=== PATIENT | male | born 1970 | race Caucasian/White ===

== ENCOUNTER 2019-10-18 14:47 | Outpatient (CLI) | payer SELFPAY ==
--- NOTE | 2019-10-18 14:58 | XR_ITS ---
WS: [id number] PROCEDURE: XR chest 2V* [id number] CLINICAL INFORMATION: CHRONIC COUGH, TOBACCO COMPARISON: None. FINDINGS: Heart: Normal cardiac silhouette. Lungs: Moderate chronic emphysematous changes. No acute pulmonary infiltrates. Bones: Normal visualized bony structures. XR/XR chest 2V* [id number] IMPRESSION: Moderate chronic emphysematous changes. No acute chest findings.
== END 2019-10-18 14:48 | disposition home or self-care (01) ==
LOC: RADWPI 14:54
PROVIDERS: PCP Nurse Practitioner Family; Visit Provider Nurse Practitioner Family
DX: R05 Cough (principal); F17.200 Nicotine dependence, unspecified, uncomplicated; J43.9 Emphysema, unspecified
CPT/HCPCS: 71046

== ENCOUNTER 2022-12-14 15:05 | Outpatient (CLI) | payer BC, MEDICAID, SELFPAY ==
--- NOTE | 2022-12-14 15:53 | XR_ITS ---
WS: [id number] CHEST 2 VIEWS HISTORY: Dyspnea COMPARISON: 10/18/2019. Lungs: Hyperinflated lungs with flattened diaphragms. Mild prominence of the interstitium has progres sed since the prior study. No dense consolidation or pneumonia. Cardiac size: Normal. Mediastinum/Aorta: Normal mediastinum. Bones: Normal. IMPRESSION: 1. Chronic emphysema. 2. Mild increase in amount of interstitial thickening greatest throughout the lower right lung. Proba chastity areas of pneumonitis. No dense consolidation or pneumonia.
== END 2022-12-14 15:06 | disposition home or self-care (01) ==
PROVIDERS: PCP Nurse Practitioner Family; Visit Provider Nurse Practitioner Family
DX: J44.9 Chronic obstructive pulmonary disease, unspecified (principal); R06.00 Dyspnea, unspecified
CPT/HCPCS: 71046

== ENCOUNTER 2023-01-04 09:43 | Emergency (ER) | payer BC, MEDICAID, SELFPAY ==
[2023-01-04 10:06] VITALS: BP 145/74; PULSE 83; RESP 18; TEMP 36.8; O2SAT 93; BMI 30.9
--- NOTE | 2023-01-04 12:33 | ED_ITS ---
HPI - Abdominal Pain General: Chief Complaint: Abdominal Pain Stated Complaint: abd pain, left side Time Seen by Provider: 01/04/23 12:27 Source: patient Mode of arrival: ambulatory History of Present Illness: 52-year-old male presents emergency room complaint complaining of right-sided abdominal plain part of mid abdomen laterally following pain fluid he coughs or moves or twists. Particularly painful when he coughs. Patient is a heavy smoker has severe COPD he has been wheezing quite a bit lately and coughing no dysuria urgency or frequency no hematochezia melena he had emesis no diarrhea or vomiting MD elicited complaint: abdominal pain Onset (ago): day(s) Pain Consistency: intermittent Location: Other (Left lateral mid abdomen ) Quality: sharp Radiation: none Exacerbating factors: movement and other (Coughing) Relieving factors: rest (Remaining still) Associated Symptoms: Denies anorexia, belching, bloating, change in bowel habits, change in stool character, chills, coffee ground emesis, constipation, GI cramping, diarrhea, dyspepsia, dysuria, excessive flatus, fever(s), heartburn, hematochezia, hematuria, hematemesis, fecal incontinence, loose stools, melena, nausea, poor appetite, syncope and vomiting Review of Systems Const: Denies: fever(s) or chills Card: Denies: syncope Resp: Reports: dyspnea, non-productive cough and wheezing; Denies: productive cough GI: Reports: abdominal pain; Denies: nausea, vomiting, hematemesis, coffee ground emesis, heartburn, diarrhea, constipation, bloating, GI cramping, belching, excessive flatus, fecal incontinence, change in bowel habits, change in stool character, hematochezia or melena : Denies: dysuria, urinary frequency, urinary urgency or hematuria Skin/Breast: Denies: rash or pruritus PFSH ED PFSH: Medical History (Updated 01/04/23 @ 14:44 by Hans Demarco DO) COPD (chronic obstructive pulmonary disease) Physical Exam Const: GENERAL APPEARANCE: cooperative and comfortable ORIENTATION/CONSCIOUSNESS: Yes awake, Yes oriented to person, Yes oriented to place and Yes oriented to time HENMT: COMMON NORMALS: normocephalic, atraumatic and hearing grossly normal bilaterally HEAD & SCALP: normocephalic and atraumatic Resp: AUSCULTATION: rhonchi and wheezes Cardio: COMMON NORMALS: regular rate, regular rhythm and No murmurs present (Cardio) RATE: regular rate RHYTHM: regular rhythm GI: COMMON NORMALS: No hepatosplenomegaly present AUSCULTATION: Yes normoactive bowel sounds PALPATION: Yes Tenderness to palpation present (GI) (Left lateral mid abdomen), No Guarding due to palpation present (GI) and Yes No hepatosplenomegaly present OTHER: No palpable abdominal wall defects or hernias no inguinal hernia. Mild tenderness with palpation mid lateral abdomen on the left GI image (male): 1. : COMMON NORMALS: Yes no CVA tenderness BLADDER/KIDNEY EXAM: Yes no CVA tenderness Back/Pelvis: COMMON NORMALS: no CVA tenderness Extremity: COMMON NORMALS: normal to inspection, capillary refill normal, no clubbing, cyanosis or edema, no calf tenderness and no pedal edema Neuro: SENSORIUM/ORIENTATION: Yes oriented to person, Yes oriented to place and Yes oriented to time Skin: COMMON NORMALS: no rashes or lesions noted GENERAL SKIN EXAM: no rashes or lesions noted Course Vital Signs: Vital signs: Vital Signs Temperature 98.2 F 01/04/23 10:06 Pulse Rate 69 01/04/23 14:06 Respiratory Rate 18 01/04/23 14:06 Blood Pressure 146/94 01/04/23 14:06 Pulse Oximetry 92 01/04/23 14:06 Oxygen Delivery Me thod Room Air 01/04/23 14:06 MDM - Abdominal Pain Medical Decision Making Improved after nebulizer. Discharge home on steroids doxycycline Symbicort and albuterol to use as needed suspect this is from muscle pull from his COPD exacerbation. Can use ibuprofen or Tylenol for discomfort and junaid wall ice follow-up with primary care doctor within 1 week. Medical Records I reviewed the patient's medical records. Lab Data I reviewed the patient's lab results. 01/04/23 13:36 01/04/23 13:36 Labs/Radiology: Radiology Impressions Chest X-Ray 01/04/23 12:44 IMPRESSION: No acute findings. Laboratory Results WBC 10.91 10^3/uL (3.29-11.43) 01/04/23 13:36 RBC 4.51 10^6/uL (3.85-5.65) 01/04/23 13:36 Hgb 13.40 g/dL (11.27-16.99) 01/04/23 13:36 Hct 42.2 % (37-53) 01/04/23 13:36 MCV 93.6 fl (82-101) 01/04/23 13:36 MCH 29.7 pg (27-33) 01/04/23 13:36 MCHC 31.8 g/dL (30-55) 01/04/23 13:36 RDW 14.0 % (12.1-15.1) 01/04/23 13:36 Plt Count 265 10^3/cmm (157-399) 01/04/23 13:36 MPV 9.7 fL (7.4-10.4) 01/04/23 13:36 Neut % (Auto) 70.4 % 01/04/23 13:36 Lymph % (Auto) 18.7 % 01/04/23 13:36 Wilkes % (Auto) 8.1 % 01/04/23 13:36 Eos % (Auto) 2.0 % 01/04/23 13:36 Baso % (Auto) 0.4 % 01/04/23 13:36 Neut # (Auto) 7.69 10^3/uL (1.8-7.7) 01/04/23 13:36 Lymph # (Auto) 2.0 10^3/uL (0.8-4.8) 01/04/23 13:36 Wilkes # (Auto) 0.9 10^3/uL (0.2-0.9) 01/04/23 13:36 Eos # (Auto) 0.2 10^3/uL (0.0-0.8) 01/04/23 13:36 Baso # (Auto) 0.0 10^3/uL (0.0-0.1) 01/04/23 13:36 Nucleated RBC % (auto) 0 % 01/04/23 13:36 Nucleated RBCs # 0.0 /100WBC 01/04/23 13:36 Sodium 137 mmol/L (136-145) 01/04/23 13:36 Potassium 3.9 mmol/L (3.5-5.1) 01/04/23 13:36 Chloride 97 mmol/L (98-107) L 01/04/23 13:36 Carbon Dioxide 33 mmol/L (22-29) H 01/04/23 13:36 Anion Gap 10.9 (5-19) 01/04/23 13:36 BUN 16 mg/dL (6-20) 01/04/23 13:36 Creatinine 0.7 mg/dL (0.7-1.2) 01/04/23 13:36 GFR Calculation 118.4 mL/min (90-130) 01/04/23 13:36 Glucose 108 mg/dL (65-115) 01/04/23 13:36 Calculated Osmolality 286 mOsm/kg (285-295) 01/04/23 13:36 Calcium 9.6 mg/dL (8.5-10.5) 01/04/23 13:36 Total Bilirubin 0.2 mg/dL (0.15-1.2) 01/04/23 13:36 AST 19 U/L (0-40) 01/04/23 13:36 ALT 30 U/L (0-41) 01/04/23 13:36 Alkaline Phosphatase 91 U/L (40-130) 01/04/23 13:36 Total Protein 7.5 g/dL (6.6-8.7) 01/04/23 13:36 Albumin 4.4 g/dL (3.5-5.2) 01/04/23 13:36 Globulin 3.1 g/dL (1.3-4.6) 01/04/23 13:36 Urine Color Yellow (Yellow) 01/04/23 13:43 Urine Appearance Clear (CLEAR) 01/04/23 13:43 Urine pH 6 (5-7) 01/04/23 13:43 Ur Specific [place] 1.020 (1.005-1.030) 01/04/23 13:43 Urine Protein Neg (Negative) 01/04/23 13:43 Urine Glucose (UA) Norm (Normal) 01/04/23 13:43 Urine Ketones 1+ (Negative) H 01/04/23 13:43 Urine Blood Neg (Negative) 01/04/23 13:43 Urine Nitrate Negative (Negative) 01/04/23 13:43 Urine Bilirubin Neg (Negative) 01/04/23 13:43 Urine Urobilinogen Norm mg/dL (Negative) 01/04/23 13:43 Ur Leukocyte Esterase Negative (Negative) 01/04/23 13:43 Discharge Plan Discharge Patient Disposition: Home Clinical Impression: Strain of abdominal wall, Acute exacerbation of chronic obstructive pulmonary disease Condition: Stable Prescriptions: New doxycycline hyclate 100 mg capsule 100 mg PO BID 10 Days Qty: 20 0RF prednisone 20 mg tablet 20 mg PO TID Qty: 15 0RF Rx Instructions: 1 p.o. 3 times daily x3 days, 1 p.o. twice daily x2 days, 1 p.o. daily x2 days albuterol sulfate 90 mcg/actuation HFA aerosol inhaler 2 inh INHALATION Q4H PRN (Reason: shortness of breath or wheezing) Qty: 18 0RF Symbicort 80-4.5 mcg/actuation HFA aerosol inhaler 2 inh inhalation BID Qty: 10.2 0RF Discharge Orders: Discharge ED (Routine); Ordered 01/04/23 Ordered By: Hans Demarco Referrals: Nicki Farah, PACKING SUPERVISOR [Primary Care Provider] - Discharge Diet: Usual diet Discharge Activity: Increase activity as tolerated Patient Instructions: Opioid Safety, Pain Management Activity Restrictions/Additional Instructions: Follow-up with your primary care doctor within the week to reevaluate your new medicines. Coding Level of Care Code ED Cnc Machine Setter for Korina Mcneal
--- NOTE | 2023-01-04 12:44 | XRR_ITS ---
PROCEDURE INFORMATION: Exam: XR Chest Exam date and time: 01/04/2023 12:45 PM Age: 52 years old Clinical indication: Chest wall pain; Additional info: Dyspnea/cough TECHNIQUE: Imaging protocol: Radiologic exam of the chest. Views: 1 view. COMPARISON: CR XR chest 2V* [id number] 12/14/2022 3:57 PM FINDINGS: Lungs: Minimal linear atelectasis versus scarring at the peripheral right lung base. No consolidation. Pleural spaces: Unremarkable. No pleural effusion. No pneumothorax. Heart/Mediastinum: Unremarkable. No cardiomegaly. Bones/joints: Mild degenerative changes of the shoulders. XR/XR chest 1V portable [id number] IMPRESSION: No acute findings.
[2023-01-04] MEDS: ipratropium-albuterol 3 mL Neb INHALATION (13:16)
[2023-01-04 13:18] VITALS: PULSE 71; RESP 22; O2SAT 91
[2023-01-04 13:22] VITALS: PULSE 67
[2023-01-04 13:26] VITALS: BP 146/94; PULSE 76; RESP 18; O2SAT 93
[2023-01-04] MEDS: dexamethasone 10 mg/mL INJ IVP (13:35)
[2023-01-04 13:47] LABS: Basophils % 0.4 %; Eosinophils # 0.2 10^3/uL (0.0-0.8); Hematocrit 42.2 % (37-53); Lymphocytes % 18.7 %; Mean Corpuscular HGB Conc 31.8 g/dL (30-55); Mean Corpuscular Hemoglobin 29.7 pg (27-33); Mean Corpuscular Volume 93.6 fl (82-101); Mean Platelet Volume 9.7 fL (7.4-10.4); Monocytes # 0.9 10^3/uL (0.2-0.9); Monocytes % 8.1 %; Neutrophils # 7.69 10^3/uL (1.8-7.7); Neutrophils % 70.4 %; Nucleated Red Blood Cells % 0 %; Platelet Count 265 10^3/cmm (157-399); Red Blood Count 4.51 10^6/uL (3.85-5.65); White Blood Count 10.91 10^3/uL (3.29-11.43)
[2023-01-04 14:06] VITALS: BP 146/94; PULSE 69; RESP 18; O2SAT 92
[2023-01-04 14:11] LABS: Add Urine Microscopic? NO; Charge for UA Resulting for Rev
[2023-01-04 14:11] LABS: Alanine Aminotransferase 30 U/L (0-41); Albumin Level 4.4 g/dL (3.5-5.2); Alkaline Phosphatase 91 U/L (40-130); Anion Gap 10.9 (5-19); Aspartate Amino Transferase 19 U/L (0-40); Blood Urea Nitrogen 16 mg/dL (6-20); Calcium 9.6 mg/dL (8.5-10.5); Carbon Dioxide 33 mmol/L (22-29); Chloride 97 mmol/L (98-107); Globulin 3.1 g/dL (1.3-4.6); Glomerular Filtration Rate 118.4 mL/min (90-130); Glucose 108 mg/dL (65-115); Osmolality Calculated 286 mOsm/kg (285-295); Potassium 3.9 mmol/L (3.5-5.1); Sodium 137 mmol/L (136-145); Total Bilirubin 0.2 mg/dL (0.15-1.2); Total Protein 7.5 g/dL (6.6-8.7)
[2023-01-04 14:28] LABS: Bilirubin Urine Neg (Negative); Blood Urine Neg (Negative); Glucose Urine UA Norm (Normal); Ketones Urine 1+ (Negative); Leukocyte Esterase Urine Negative (Negative); Nitrate Urine Negative (Negative); Protein Urine Neg (Negative); Urine Appearance Clear (CLEAR); Urine Color Yellow (Yellow); Urobilinogen Urine Norm (Negative); pH Urine 6 (5-7)
== END 2023-01-04 14:50 | disposition home or self-care (01) ==
PROVIDERS: Emergency Provider Family Medicine; PCP Nurse Practitioner Family
DX: S39.011A Strain of muscle, fascia and tendon of abdomen, initial encounter (principal); J44.1 Chronic obstructive pulmonary disease with (acute) exacerbation; X58.XXXA Exposure to other specified factors, initial encounter
CPT/HCPCS: 71045; 80053; 81003; 85025; 94640; 96374; 99284; J1100

== ENCOUNTER 2023-06-16 16:50 | Outpatient (CLI) | payer BC, MEDICAID, SELFPAY ==
--- NOTE | 2023-06-16 16:55 | XR_ITS ---
WS: [id number] KUB, AP view, 06/16/2023 Clinical Data: CONSTIPATION Comparison: None. Findings: No abnormal intraabdominal masses or calcifications are seen. There is no dilatated small bowel or ev idence of obstruction. There is fecal material throughout the colon. There is degenerative change of the lumbar vertebral benito dies with a minimal levoscoliosis.. Impression: Moderate fecal material in the colon.
--- NOTE | 2023-06-16 16:55 | XR_ITS ---
WS: [id number] Chest 2 views, 06/16/2023 Clinical Data: DYSPNEA Comparison: Portable chest, 01/04/2023 Findings: No nodules, masses or effusions are seen. The heart is slightly enlarged. The pulmonary vas cularity is not increased. No pneumonia or pneumothorax is seen. The diaphragms are flattened. The ao rtic arch is minimally tortuous. Impression: 1. Cardiomegaly and atherosclerosis. 2. Hyperinflation.
== END 2023-06-16 16:51 | disposition home or self-care (01) ==
PROVIDERS: PCP Nurse Practitioner Family; Visit Provider Nurse Practitioner Family
DX: R06.00 Dyspnea, unspecified (principal); K59.00 Constipation, unspecified; I51.7 Cardiomegaly; R91.8 Other nonspecific abnormal finding of lung field; I70.90 Unspecified atherosclerosis
CPT/HCPCS: 71046; 74018

== ENCOUNTER 2023-07-21 12:47 | Outpatient (CLI) | payer BC, MEDICAID, SELFPAY ==
[2023-07-21 13:07] VITALS: PULSE 87; RESP 18; O2SAT 94
[2023-07-21] MEDS: albuterol 2.5 mg/3 mL Neb INHALATION (13:07)
[2023-07-21 13:11] VITALS: PULSE 92
== END 2023-07-21 12:48 | disposition home or self-care (01) ==
PROVIDERS: PCP Nurse Practitioner Family; Visit Provider Nurse Practitioner Family
DX: R06.00 Dyspnea, unspecified (principal)
CPT/HCPCS: 94060; J7613

== ENCOUNTER 2023-11-19 15:06 | Outpatient (CLI) | payer BC, MEDICAID, SELFPAY ==
--- NOTE | 2023-11-19 15:18 | CTR_ITS ---
PROCEDURE INFORMATION: Exam: CT Neck With Contrast Exam date and time: 11/19/2023 3:24 PM Age: 52 years old Clinical indication: Dyspnea / difficulty breathing; Additional info: Dysphagia TECHNIQUE: Imaging protocol: Computed tomography of the neck with contrast. Radiation optimization: All CT scans at this facility use at least one of these dose optimization techniques: automated exposure control; mA and/or kV adjustment per patient size (includes targeted exams where dose is matched to clinical indication); or iterative reconstruction. Contrast material: OMNI 350; Contrast volume: 100 ml; Contrast route: INTRAVENOUS (IV); COMPARISON: CR XR chest 2V* [id number] 06/16/2023 4:58 PM RADIATION DOSE METRICS: Total DLP (mGy-cm): 267.13 FINDINGS: Salivary glands: Normal. Glands are normal in size. Pharynx: Unremarkable. No significant tonsillar enlargement. Prevertebral and retropharyngeal spaces: Unremarkable. Larynx: Unremarkable. Epiglottis is normal. Thyroid: Normal. No enlarged or calcified nodules. Trachea: Visualized trachea is unremarkable. Lungs: Motion artifact makes evaluation of the lung apices somewhat suboptimal there appears to be emphysematous changes. Lymph nodes: Unremarkable. No lymphadenopathy. Vasculature: There is minimally heterogeneous increased density in between the anterior aspect of the right internal carotid artery and posterior aspect of the right external carotid artery measuring 2.1 x 1.7 cm in transverse/AP dimensions suspicious for an aneurysm. Atherosclerotic plaque in the proximal left internal carotid artery results in mild to moderate stenosis. Bones/joints: Unremarkable. No acute fracture. Soft tissues: Unremarkable. No significant soft tissue swelling. CT/CT neck w con* [id number] IMPRESSION: 1. Heterogeneous increased density in between the right internal and external carotid arteries this is suspicious for aneurysm. CT angiogram of the neck is recommended for further evaluation. 2. There is atherosclerotic plaque in the proximal left internal carotid artery with uieo-mg-psllniyl stenosis. 3. Motion artifact makes evaluation of the lung apices somewhat suboptimal there appears to be emphysematous changes.
[2023-11-19] MEDS: iohexol 350 mg/mL 500 mL Btl (per mL) IV (15:39)
== END 2023-11-19 15:07 | disposition home or self-care (01) ==
PROVIDERS: PCP Nurse Practitioner Family; Visit Provider Specialist
DX: R13.19 Other dysphagia (principal); I77.89 Other specified disorders of arteries and arterioles; R06.00 Dyspnea, unspecified; R93.89 Abnormal findings on diagnostic imaging of other specified body structures; I65.22 Occlusion and stenosis of left carotid artery
CPT/HCPCS: 70491; Q9967

== ENCOUNTER 2023-11-24 08:17 | Outpatient (CLI) | payer BC, MEDICAID, SELFPAY ==
--- NOTE | 2023-11-24 08:26 | FL_ITS ---
WS: [id number] FL barium swallow [id number] REASON FOR EXAM: OTHER DYSPHAGIA. Long history of gastroesophageal reflux symptoms. FLUOROSCOPY TIME: 3min [id number] # OF SPOT FILMS: Multiple FINDINGS: Patient was examined in the standing AP and lateral position, prone [place] position, and the supine posi tion. Swallowing of barium was monitored fluoroscopically and multiple spot films obtained. The cervical esophagus is unremarkable. The thoracic esophagus has mildly weakened peristalsis and mild dilatation. There is a moderate hiatal hernia. There are extremely thickened, presumed edematous gastric folds fr om the fundus extending into the hiatal hernia. There is a persistent focal masslike area at the saurabh roesophageal junction. Gastroesophageal reflux was not identified however Short patient interview strongly indicates gastroe sophageal reflux. FL/FL barium swallow [id number] IMPRESSION: Mildly decreased peristalsis of the thoracic esophagus with mild dilatation. Ed ematous gastric mucosa and a persistent masslike focus at the gastroesophageal junction which measures approximately 2 x 2 cm. With this finding and the patie nt's history, upper endoscopy to exclude carcinoma is suggested.
== END 2023-11-24 08:18 | disposition home or self-care (01) ==
LOC: RAD 08:18
PROVIDERS: PCP Nurse Practitioner Family; Visit Provider Specialist
DX: R13.19 Other dysphagia (principal); K44.9 Diaphragmatic hernia without obstruction or gangrene; K22.89 Other specified disease of esophagus
CPT/HCPCS: 74220

== ENCOUNTER 2023-12-08 12:20 | Outpatient (CLI) | payer BC, MEDICAID, SELFPAY ==
--- NOTE | 2023-12-08 12:29 | CT_ITS ---
WS: [id number] CT ANGIOGRAM CAROTID ARTERIES HISTORY: ANEURYSM OF CAROTID ARTERY TECHNIQUE: CT angiogram is performed of the carotid arteries. During arterial injection imaging is ob tained from the skull base to the aortic arch in 1.25 mm imaging. Coronal and sagittal reformats are submitted, MIP imaging also reviewed. Additional multiplanar reformats of the carotid arteries are esquivel bmitted. NASCET criteria utilized. All CT scans at [facility] use at least one of these dose optimization techniques: automated exposure control; mA and/or kV adjustment per patient size (includ es targeted exams where dose is matched to clinical indication); or iterative reconstruction. CONTRAST: Omnipaque 350; 100 mL IV. DLP: 283.52 mGy.cm COMPARISON: CT neck 11/19/2023 Right carotid: Common carotid artery: Arises normally from the innominate artery. No significant plaque or stenosis. Internal carotid artery: Splaying of the RIGHT internal and external carotid arteries. There is vascu lar enhancement splaying the internal and external carotid arteries measures 1.4 x 1.9 x 1.9 cm. 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 Proximal RIGHT ICA is approximately 50% encase d by the carotid body tumor. External carotid artery: Patent. Left carotid: Common carotid artery: Arises normally from the aortic arch. No significant stenosis. Internal carotid artery: Mild plaque at the bifurcation. There is a very tiny area of increased enhan cement between the internal and external carotid arteries which could possibly be a very tiny paragan glioma. External carotid artery: Patent. Right vertebral artery: Small caliber but patent. Left vertebral artery: Dominant and normal. Subclavian arteries: No stenosis or abnormality identified. Upper thorax: Mild emphysema. Thyroid gland: Normal. Osseous structures: Unremarkable. Skull base: Negative. CT/CT angio neck [id number] IMPRESSION: 1. Vascular mass splaying the RIGHT internal/external carotid arteries measure s 1.4 x 1.9 x 1.9 cm. This is consistent with a carotid body paraganglioma. Erica roximately 50% encasement of the proximal RIGHT ICA by the paraganglioma. 2. There is a very tiny focus of enhancement measuring maximally 0.3 cm betwee n the LEFT internal and external carotid arteries which could potentially be an additional very tiny paraganglioma. Paragangliomas are bilateral in approximat shira 10% of the patient's. 3. Mild atherosclerosis carotid arteries. No aneurysm.
[2023-12-08] MEDS: iohexol 350 mg/mL 500 mL Btl (per mL) IV (12:38)
== END 2023-12-08 12:21 | disposition home or self-care (01) ==
LOC: RAD 12:21
PROVIDERS: PCP Nurse Practitioner Family; Visit Provider Specialist
DX: I72.0 Aneurysm of carotid artery (principal); D44.6 Neoplasm of uncertain behavior of carotid body; I65.29 Occlusion and stenosis of unspecified carotid artery
CPT/HCPCS: 70498; Q9967

== ENCOUNTER 2024-05-18 14:56 | Emergency (ER) | payer BC, MEDICAID, SELFPAY ==
--- NOTE | 2024-05-18 15:06 | ECG_ITS ---
[facility]24[facility]18 Pat Name: Garth Wilde Department: Room: Gender: Male Parish Worker: : 1970 Requested By: Radha Dueñas Order Number: [id number] Maddi MD: JOB JUAREZ Measurements Intervals [place] Rate: 83 P: 67 FL: 143 QRS: -31 QRSD: 98 T: 68 QT: 349 QTc: 410 Interpretive Statements SINUS RHYTHM LEFT AXIS DEVIATION [QRS AXIS < -30] NONSPECIFIC ST & T-WAVE ABNORMALITY No previous ECG available for comparison Electronically Signed On 05-19-2024 23:33:15 WOOD HEEL FINISHER by JOB JUAREZ [email or web address]
[2024-05-18 15:09] VITALS: BP 116/75; PULSE 92; RESP 25; TEMP 36.6; O2SAT 95; BMI 30.7
--- NOTE | 2024-05-18 15:38 | XRR_ITS ---
PROCEDURE INFORMATION: Exam: XR Chest Exam date and time: 05/18/2024 3:45 PM Age: 53 years old Clinical indication: Shortness of breath; Additional info: SOB TECHNIQUE: Imaging protocol: Radiologic exam of the chest. Views: 1 view. COMPARISON: CR XR chest 2V* [id number] 06/16/2023 4:58 PM FINDINGS: Lungs: Patchy opacities along the lateral aspect of the right lung base. Pleural spaces: Unremarkable. No pleural effusion. No pneumothorax. Heart/Mediastinum: Stable cardiomediastinal silhouette. Bones/joints: Unremarkable. XR/XR chest 1V portable [id number] IMPRESSION: Patchy right basilar opacities likely represent infiltrate.
--- NOTE | 2024-05-18 15:57 | ED_ITS ---
HPI - SOB/Dyspnea 2 General: Chief Complaint: Shortness of Breath/Dyspnea Stated Complaint: SOB Time Seen by Provider: 05/18/24 15:38 Source: patient Mode of arrival: ambulatory Limitations: no limitations History of Present Illness: HPI Narrative: Patient is a 53-year-old male presents to ED today with complaint of productive cough and shortness of breath. He states symptoms have been present over the past 2 to 3 weeks. He states he has been told he has all kinds of lung problems including asthma, COPD, asthmatic bronchitis, etc. Patient is an everyday smoker. He uses Albuterol and Symbicort at home. Patient does not see a mason tender. 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 He arrives to the emergency department in no acute distress with stable vital signs. He does not wear oxygen at home. He feels like his dyspnea is worse with exertion and lying flat. He has no history of CHF. He has not noticed any weight gain, PND, or lower extremity edema. MD elicited complaint: shortness of breath and cough Pertinent past history: COPD Onset (ago): week(s) Timing: constant Severity: moderate Exacerbating factors: lying flat and exertion Relieving factors: nothing Known history of: COPD Associated symptoms: Reports chest congestion and orthopnea; Deny abdominal pain, chest pain, dizziness, extremity pain, fever(s), hemoptysis, lightheadedness, nausea, palpitations, syncope or vomiting Treatment prior to arrival: none Related Data Previous Rx's Medication Instructions Recorded albuterol sulfate 90 mcg/actuation 2 inh inhalation Q4H PRN shortness 01/04/23 aerosol inhaler of breath or wheezing #18 grams budesonide-formoterol HFA 80 2 inh inhalation BID #10.2 grams 01/04/23 mcg-4.5 mcg/actuation aerosol inhaler (Symbicort) amoxicillin 875 mg-potassium 1 tab PO BID #14 tabs 05/18/24 clavulanate 125 mg tablet azithromycin 250 mg tablet See Rx Instructions PO .COMPLEX #6 05/18/24 tabs prednisone 10 mg tablet 10 mg PO DAILY 6 days #20 tabs 05/18/24 Allergies Allergy/AdvReac Type Severity Reaction Status Date / Time No Known Allergies Allergy Verified 02/14/23 13:12 Review of Systems 2 Const: Denies: fever(s), chills, body aches, fatigue or malaise Eyes: Denies: change in vision, blurry vision, photophobia, floaters or seeing flashes ENMT: Denies: throat pain, odynophagia, ear or mastoid pain, nasal discharge, nasal congestion or sinus pain Card: Reports: dyspnea on exertion and orthopnea; Denies: chest pain, palpitations, irregular heart rhythm, edema, swelling of feet/ankles, lightheadedness, syncope, pre-syncope, leg pain with exertion or acrocyanosis Resp: Reports: dyspnea, productive cough, change in phlegm color and chest congestion; Denies: wheezing, pain on inspiration or hemoptysis GI: Denies: abdominal pain, nausea, vomiting, heartburn or diarrhea : Denies: flank pain, difficulty urinating, dysuria or urinary frequency Musc: Denies: neck pain, back pain, extremity pain, extremity swelling or joint pain Skin/Breast: Denies: rash Neuro: Denies: headache(s), numbness in extremities, weakness in extremities, sensory changes or dizziness PFSH ED 2 PFSH: Medical History COPD (chronic obstructive pulmonary disease) Physical Exam 2 Const: COMMON NORMALS: no acute distress, average body habitus, patient oriented x3, no limitations, alert and well nourished GENERAL APPEARANCE: c ooperative HENMT: COMMON NORMALS: normocephalic and atraumatic HEAD & SCALP: normal to inspection, normocephalic and atraumatic FACE & SINUS: normal facial exam and sinuses nontender Neck/C-Spine: COMMON NORMALS: full ROM, no lymphadenopathy, supple, no meningeal signs and no JVD Chest: COMMONS NORMALS: normal inspection of the chest Resp: COMMON NORMALS: normal respiratory effort AUSCULTATION: rhonchi and bronchial breath sounds Cardio: COMMON NORMALS: no JVD, regular rate and regular rhythm RATE: r egular rate RHYTHM: regular rhythm GI: COMMON NORMALS: Normal to inspection, nondistended, normoactive bowel sounds present, Soft to palpation, non-tender, No hepatosplenomegaly present and no masses PALPATION: Yes Soft to palpation and Yes No hepatosplenomegaly present : COMMON NORMALS: Yes no CVA tenderness BLADDER/KIDNEY EXAM: Yes no CVA tenderness Back/Pelvis: COMMON NORMALS: no CVA tenderness and thoracic and lumbar spine normal to inspection Extremity: COMMON NORMALS: normal to inspection, no clubbing, cyanosis or edema, no calf tenderness and no pedal edema GENERAL: Yes normal exam except as noted Neuro: COMMON NORMALS: patient oriented x3, moves all extremities, no focal motor deficits, no sensory deficits noted and gait normal S ENSORIUM/ORIENTATION: Yes alert MENINGEAL SIGNS: Yes no meningeal signs Skin: COMMON NORMALS: no rashes or lesions noted GENERAL SKIN EXAM: no rashes or lesions noted Course 2 Vital Signs: Vital signs: Vital Signs Temperature 97.9 F 05/18/24 15:09 Pulse Rate 94 05/18/24 17:23 Respiratory Rate 24 H 05/18/24 16:25 Blood Pressure 109/62 05/18/24 17:23 Pulse Oximetry 96 05/18/24 17:23 Oxygen Delivery Me thod Room Air 05/18/24 17:23 MDM - SOB/Dyspnea Medical Decision Making Patient clinically appears well. Symptoms seem consistent with a COPD exacerbation. On his CXR he was noted to have a patchy right basilar opacity most likely representing infiltrate. White count is mildly elevated at 14.5. He has a normal procalcitonin. The remainder of his workup is unremarkable. His BNP is normal. No evidence of CHF or fluid overload. Patient will be treated for a community-acquired pneumonia/COPD exacerbation with Augmentin/Azithromycin and placed on steroids. He can continue his home Symbicort and Albuterol. Recommend he follow-up with primary care next week. Return ED precautions given. Differential Diagnosis Likely acute exacerbation of chronic obstructive airways disease and community acquired pneumonia Medical Records I reviewed the patient's medical records. Lab Data I reviewed the patient's lab results. 05/18/24 16:15 05/18/24 16:15 Labs/Radiology: Radiology Impressions Chest X-Ray 05/18/24 15:38 IMPRESSION: Patchy right basilar opacities likely represent infiltrate. Laboratory Results WBC 14.55 10^3/uL (3.29-11.43) H 05/18/24 16:15 RBC 4.71 10^6/uL (3.85-5.65) 05/18/24 16:15 Hgb 14.00 g/dL (11.27-16.99) 05/18/24 16:15 Hct 43.0 % (37-53) 05/18/24 16:15 MCV 91.3 fl (82-101) 05/18/24 16:15 MCH 29.7 pg (27-33) 05/18/24 16:15 MCHC 32.6 g/dL (30-55) 05/18/24 16:15 RDW 12.7 % (12.1-15.1) 05/18/24 16:15 Plt Count 346 10^3/cmm (157-399) 05/18/24 16:15 MPV 9.0 fL (7.4-10.4) 05/18/24 16:15 Neut % (Auto) 72.9 % 05/18/24 16:15 Lymph % (Auto) 15.9 % 05/18/24 16:15 [place]bour % (Auto) 9.3 % 05/18/24 16:15 Eos % (Auto) 0.8 % 05/18/24 16:15 Baso % (Auto) 0.1 % 05/18/24 16:15 Neut # (Auto) 10.58 10^3/uL (1.8-7.7) H 05/18/24 16:15 Lymph # (Auto) 2.3 10^3/uL (0.8-4.8) 05/18/24 16:15 [place] # (Auto) 1.4 10^3/uL (0.2-0.9) H 05/18/24 16:15 Eos # (Auto) 0.1 10^3/uL (0.0-0.8) 05/18/24 16:15 Baso # (Auto) 0.0 10^3/uL (0.0-0.1) 05/18/24 16:15 Nucleated RBC % (auto) 0 % 05/18/24 16:15 Nucleated RBCs # 0.0 /100WBC 05/18/24 16:15 Sodium 140 mmol/L (136-145) 05/18/24 16:15 Potassium 3.7 mmol/L (3.5-5.1) 05/18/24 16:15 Chloride 102 mmol/L (98-107) 05/18/24 16:15 Carbon Dioxide 27 mmol/L (22-29) 05/18/24 16:15 Anion Gap 14.7 (5-19) 05/18/24 16:15 BUN 11 mg/dL (6-20) 05/18/24 16:15 Creatinine 0.9 mg/dL (0.7-1.2) 05/18/24 16:15 GFR Calculation 88.3 mL/min (90-130) L 05/18/24 16:15 Glucose 139 mg/dL (65-115) H 05/18/24 16:15 Calculated Osmolality 292 mOsm/kg (285-295) 05/18/24 16:15 Calcium 8.9 mg/dL (8.5-10.5) 05/18/24 16:15 Total Bilirubin 0.3 mg/dL (0.15-1.2) 05/18/24 16:15 AST 13 U/L (0-40) 05/18/24 16:15 ALT 14 U/L (0-41) 05/18/24 16:15 Alkaline Phosphatase 110 U/L (40-130) 05/18/24 16:15 NT-Pro-B Natriuret Pep 125 pg/mL (0-125) 05/18/24 16:15 Total Protein 7.7 g/dL (6.6-8.7) 05/18/24 16:15 Albumin 4.0 g/dL (3.5-5.2) 05/18/24 16:15 Globulin 3.7 g/dL (1.3-4.6) 05/18/24 16:15 Procalcitonin 0.10 ng/mL (0-0.5) 05/18/24 16:15 All radiology interpretation(s) finalized by discharge Discharge Plan Discharge Patient Disposition: Home Clinical Impression: Acute exacerbation of chronic obstructive airways disease Pneumonia involving right lung Qualifiers: Pneumonia type: due to unspecified organism Lung location: unspecified part of lung Qualified Code(s): J18.9 - Pneumonia, unspecified organism Condition: Stable Prescriptions: New prednisone 10 mg tablet 10 mg PO DAILY 6 Days Qty: 20 0RF Rx Instructions: Take 5 tabs on day 1-2, 4 tabs on day 3, 3 tabs on day 4, 2 tabs on day 5, and 1 tab on day 6 azithromycin 250 mg tablet See Rx Instructions .ROUTE .COMPLEX Qty: 6 0RF Rx Instructions: take 500 mg today (day 1), then 250 mg for 4 days (days 2-5) amoxicillin-pot clavulanate 875-125 mg tablet 1 tab PO BID Qty: 14 0RF Discontinued prednisone 20 mg tablet 20 mg PO BID 5 Days Qty: 10 0RF cefdinir 300 mg capsule 300 mg PO BID 5 Days Qty: 10 0RF No Action albuterol sulfate 90 mcg/actuation HFA aerosol inhaler 2 inh INHALATION Q4H PRN (Reason: shortness of breath or wheezing) Qty: 18 0RF Symbicort 80-4.5 mcg/actuation HFA aerosol inhaler 2 inh inhalation BID Qty: 10.2 0RF Discharge Orders: Discharge ED (Routine); Ordered 05/18/24 Ordered By: Radha Dueñas Referrals: Nicki Farah FNP [Primary Care Provider] - Patient Instructions: COPD (Chronic Obstructive Pulmonary Disease) (DC), Bacterial Pneumonia (DC), Pneumonia (ED) Activity Restrictions/Additional Instructions: As we discussed, I would like you to follow-up with your primary care provider next week for reevaluation. You need to return to the emergency department for worsening shortness of breath, difficulty breathing, severe chest pain, generally feeling worse or unwell, or any other concerns you may have. I hope you begin to feel better soon. Coding Level of Care Code ED Airplane Cabin Attendant for Korina Mcneal
[2024-05-18] MEDS: ipratropium-albuterol 3 mL Neb INHALATION (16:16)
[2024-05-18 16:17] VITALS: PULSE 100; RESP 24; O2SAT 94
[2024-05-18] MEDS: methylPREDNISolone sod succ 125 mg/2 mL INJ IVP (16:20)
[2024-05-18 16:25] VITALS: PULSE 89; RESP 24; O2SAT 94
[2024-05-18 16:31] LABS: Basophils % 0.1 %; Eosinophils # 0.1 10^3/uL (0.0-0.8); Eosinophils % 0.8 %; Lymphocytes # 2.3 10^3/uL (0.8-4.8); Lymphocytes % 15.9 %; Mean Corpuscular HGB Conc 32.6 g/dL (30-55); Mean Corpuscular Hemoglobin 29.7 pg (27-33); Mean Corpuscular Volume 91.3 fl (82-101); Monocytes # 1.4 10^3/uL (0.2-0.9); Monocytes % 9.3 %; Neutrophils # 10.58 10^3/uL (1.8-7.7); Neutrophils % 72.9 %; Nucleated Red Blood Cells % 0 %; Platelet Count 346 10^3/cmm (157-399); Red Blood Count 4.71 10^6/uL (3.85-5.65); Red Cell Distribution Width 12.7 % (12.1-15.1); White Blood Count 14.55 10^3/uL (3.29-11.43)
[2024-05-18 16:58] LABS: NT Pro B Type Natriuretic Pept 125 pg/mL (0-125)
[2024-05-18 17:10] LABS: Alanine Aminotransferase 14 U/L (0-41); Alkaline Phosphatase 110 U/L (40-130); Anion Gap 14.7 (5-19); Aspartate Amino Transferase 13 U/L (0-40); Blood Urea Nitrogen 11 mg/dL (6-20); Calcium 8.9 mg/dL (8.5-10.5); Carbon Dioxide 27 mmol/L (22-29); Chloride 102 mmol/L (98-107); Creatinine Clr Calc Pharmacy 94.6071; Globulin 3.7 g/dL (1.3-4.6); Glomerular Filtration Rate 88.3 mL/min (90-130); Glucose 139 mg/dL (65-115); Osmolality Calculated 292 mOsm/kg (285-295); Potassium 3.7 mmol/L (3.5-5.1); Sodium 140 mmol/L (136-145); Total Bilirubin 0.3 mg/dL (0.15-1.2); Total Protein 7.7 g/dL (6.6-8.7)
[2024-05-18 17:23] VITALS: BP 109/62; PULSE 94; O2SAT 96
[2024-05-18 17:40] VITALS: BP 121/81; PULSE 83; O2SAT 94
== END 2024-05-18 17:43 | disposition home or self-care (01) ==
PROVIDERS: Emergency Provider Physician Assistant; PCP Nurse Practitioner Family
DX: J44.1 Chronic obstructive pulmonary disease with (acute) exacerbation (principal); J18.9 Pneumonia, unspecified organism
CPT/HCPCS: 71045; 80053; 83880; 84145; 85025; 93005; 94640; 99285; J2919

== ENCOUNTER 2024-07-13 08:35 | Emergency (ER) | payer BC, MEDICAID, SELFPAY ==
[2024-07-13 08:46] VITALS: BP 133/77; PULSE 83; RESP 17; TEMP 36.8; O2SAT 95; BMI 30.7
--- NOTE | 2024-07-13 08:59 | XR_ITS ---
WS: [id number] Right wrist, AP and lateral views, 07/13/2024 Clinical Data: PAIN Comparison: None. Findings: No fractures or dislocations are seen. The carpal bones are intact. There is no soft tissue swelling. The distal radius and ulna are not remarkable. XR/XR wrist RT 2V [id number] Impression: Negative right wrist.
--- NOTE | 2024-07-13 08:59 | XR_ITS ---
WS: [id number] Left wrist, AP and lateral views, 07/13/2024 Clinical Data: PAIN Comparison: None. Findings: No fractures or dislocations are seen. There is irregularity of the proximal row of carpal bones with sclerosis and cyst formation. There is irregularity of the radial carpal articulation. The soft tissues are normal. 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
[2024-07-13 10:03] VITALS: BP 146/93; PULSE 73; O2SAT 94
--- NOTE | 2024-07-13 10:11 | W.ED.EXTPRO ---
HPI - Extremity Problem General: Chief complaint: Extremity Injury, Upper Stated complaint: wrist pain Time Seen by Provider: 07/13/24 08:44 History of Present Illness: 53-year-old male presents emergency room complaining of bilateral wrist pain. Occurred after a work yesterday while he was lifting a board up it rolled backwards hyperextended his wrist and has had discomfort since then. No direct trauma no crushing trauma he has had problems with his wrist in the past. No other injuries. Related Data Home Medications ?Medication ?Instructions ?Recorded ?Confirmed atorvastatin 80 mg tablet 80 mg PO QPM 07/13/24 07/13/24 dulaglutide 0.75 mg/0.5 mL 0.75 mg SUBCUT Q7D 07/13/24 07/13/24 subcutaneous [facility] omeprazole 20 mg capsule,delayed 20 mg PO DAILY 07/13/24 07/13/24 release tiotropium bromide 2.5 2 inh inhalation DAILY 07/13/24 07/13/24 mcg/actuation mist for inhalation (Spiriva Respimat) Previous Rx's ?Medication ?Instructions ?Recorded albuterol sulfate 90 mcg/actuation 2 inh inhalation Q4H PRN shortness 01/04/23 aerosol inhaler of breath or wheezing #18 grams budesonide-formoterol HFA 80 2 inh inhalation BID #10.2 grams 01/04/23 mcg-4.5 mcg/actuation aerosol inhaler (Symbicort) diclofenac sodium 75 mg 75 mg PO Q12H PRN pain #20 tabs 07/13/24 tablet,delayed release Allergies Allergy/AdvReac Type Severity Reaction Status Date / Time No Known Allergies Allergy Verified 02/14/23 13:12 Review of Systems Musc: Reports: joint pain [facility] ED PFSH: Medical History COPD (chronic obstructive pulmonary disease) Physical Exam Const: COMMON NORMALS: no acute distress GENERAL APPEARANCE: cooperative and comfortable ORIENTATION/CONSCIOUSNESS: Yes awake, Yes oriented to person, Yes oriented to place and Yes oriented to time HENMT: COMMON NORMALS: normocephalic, atraumatic and hearing grossly normal bilaterally HEAD & SCALP: normocephalic and atraumatic Resp: COMMON NORMALS: normal respiratory effort, No retractions, No use of accessory muscles and clear to auscultation bilaterally AUSCULTATION: clear to auscultation bilaterally Cardio: COMMON NORMALS: regular rate, regular rhythm and No murmurs present (Cardio) RATE: regular rate RHYTHM: regular rhythm Extremity: OTHER: Examination of the wrist. The dorsum of the left hand there hypertrophic arthritic changes no joint effusions in either wrist neurovascularly intact no focal neurologic deficits are noted financial consultant strength equal bilaterally. Neuro: SENSORIUM/ORIENTATION: Yes oriented to person, Yes oriented to place and Yes oriented to time Skin: COMMON NORMALS: no rashes or lesions noted GENERAL SKIN EXAM: no rashes or lesions noted Course Vital Signs: Vital signs: Vital Signs Temperature 98.2 F 07/13/24 08:46 Pulse Rate 73 07/13/24 10:03 Respiratory Rate 17 07/13/24 08:46 Blood Pressure 146/93 07/13/24 10:03 Pulse Oximetry 94 07/13/24 10:03 Oxygen Delivery Me thod Room Air 07/13/24 08:46 MDM - Extremity (Nontraumatic) Medical Decision Making Treat as wrist sprain. 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 All radiology interpretation(s) finalized by discharge Discharge Plan Discharge Patient Disposition: Home Clinical Impression: Sprain and strain of wrist Condition: Stable Prescriptions: New diclofenac sodium 75 mg tablet,delayed release (DR/EC) 75 mg PO Q12H PRN (Reason: pain) Qty: 20 0RF No Action albuterol sulfate 90 mcg/actuation HFA aerosol inhaler 2 inh INHALATION Q4H PRN (Reason: shortness of breath or wheezing) Qty: 18 0RF budesonide-formoterol [Symbicort] 80-4.5 mcg/actuation HFA aerosol inhaler 2 inh inhalation BID Qty: 10.2 0RF atorvastatin 80 mg tablet 80 mg PO QPM omeprazole 20 mg capsule,delayed release(DR/EC) 20 mg PO DAILY Spiriva Respimat 2.5 mcg/actuation mist 2 inh INHALATION DAILY Trulicity 0.75 mg/0.5 mL pen injector 0.75 mg SUBCUT Q7D Discharge Orders: Discharge ED (Routine); Ordered 07/13/24 Ordered By: Hans Demarco Referrals: Nicki Farah FNP [Primary Care Provider] - Discharge Diet: Usual diet Discharge Activity: Increase activity as tolerated Patient Instructions: Opioid Safety, Pain Management Activity Restrictions/Additional Instructions: Thank you for choosing [facility] for your healthcare needs today. It is very important that you follow up as instructed or that you return to the Emergency Department should you have concerns or if your condition changes or worsens in any way. You were seen in the emergency room with complaint of wrist pain. X-rays did not show any acute fractures based on your history he likely sprained the wrist at work yesterday. You do have a fair amount of arthritis. He was started on diclofenac to use as needed follow-up with your primary care doctor if not improving Print Language: Yemeni Coding Level of Care Code ED Pooling Operator for Korina Mcneal
== END 2024-07-13 10:04 | disposition home or self-care (01) ==
PROVIDERS: Emergency Provider Family Medicine; PCP Nurse Practitioner Family
DX: M25.531 Pain in right wrist (principal); S63.502A Unspecified sprain of left wrist, initial encounter; X58.XXXA Exposure to other specified factors, initial encounter; J44.9 Chronic obstructive pulmonary disease, unspecified
CPT/HCPCS: 73100; 99283